=== PATIENT | female | born 1985 | race American Indian/Alaskan Native ===

== ENCOUNTER 2019-02-09 23:28 | Inpatient (IN) | payer MEDICAID, OTHER ==
--- NOTE | 2019-02-10 02:32 | Emergency Department Report ---
ED Back Pain/Injury HPI - General Chief Complaint: Back Pain/Injury Stated Complaint: BACK PAIN Time Seen by Provider: 02/10/19 02:20 Source: patient, family Limitations: No Limitations - History of Present Illness Initial Comments: This is a 33-year-old female here complaining of lower back pain that started in the morning. She reports nausea with some vomiting. Reports that she has chills and sweating. Pain is located to lower back and 10/10. She states she to Tylenoll.denies urinary burning frequency or urgency. Reports that her urine is a little darker than usual but denies any blood in the urine. Denies any abdominal pain. Last measured. Is 01/31/2019. She reports that she has a history of kidney infection in the past. Denies any history of kidney stones. Patient is a history of diabetes. Blood sugar stable in triage area. Does any shortness of breath or chest pain. Denies any injury to back. Denies any numbness or tingling to extremities or any loss of bowel or bladder function. MD Complaint: back pain, other (chills) -: This morning Similar Symptoms Previously: No Place: home Radiation: other (bilateral) Severity: severe Severity scale (0 -10): 10 Quality: aching, other (throbbing) Consistency: constant Improves With: immobilization Worsens With: movement, walking Context: unknown Associated Symptoms: fever/chills, loss of appetite, malaise, nausea/vomiting. denies: confusion, weakness, chest pain, numbness, difficulty walking, cough, difficulty urinating, diaphoresis, incontinence, constipation, headaches, abdominal pain, rash, seizure, shortness of breath, syncope Treatments Prior to Arrival: acetaminophen - Related Data Home Medications Medication Instructions Recorded Confirmed Last Taken metFORMIN [Glucophage] 500 mg PO QDAY 02/10/19 02/10/19 Unknown Allergies Allergy/AdvReac Type Severity Reaction Status Date / Time No Known Allergies Allergy Unverified 02/10/19 02:30 ED Review of Systems ROS: Stated complaint: BACK PAIN Other details as noted in HPI Constitutional: chills, malaise ENT: denies: throat pain, congestion Respiratory: denies: cough, shortness of breath, wheezing Cardiovascular: denies: chest pain, palpitations, edema, syncope Genitourinary: other (dark-colored urine). denies: urgency, dysuria, frequency, hematuria, discharge, abnormal menses Musculoskeletal: back pain Neurological: denies: headache, numbness, paresthesias, confusion, abnormal gait, vertigo ED Past Medical Hx - Past Medical History Medical history: diabetes Surgical history: no surgical history Psychiatric history: no pertinent history PARTS CLERK history: no PARTS CLERK history LMP comments: week(s) (9 days) Family history: diabetes, hypertension - Social History Smoking Status: Never Smoker Alcohol use: none Drug use: none ED Back Pain Physical Exam - Exam General: Vital signs noted. No distress. Alert and acting appropriately. This is 33-year-old female that looks sick. Back/Abdomen: Yes Perilumbar Tenderness, Yes Flank Tenderness (bilateral CVA tenderness), No Abdominal Tenderness, No Perithoracic Tenderness, No Sacroiliac Tenderness, No Straight Leg Raise Pain Neuro: Yes Normal Sensation, Yes Motor Weakness, Yes Normal DTR's, Yes Normal Gait ED Course Vital Signs 02/09/19 23:39 Temperature 99.4 F Pulse Rate 130 H Respiratory 20 Rate Blood Pressure 121/88 O2 Sat by Pulse 99 Oximetry Vital Signs 02/09/19 02/10/19 02/10/19 23:39 03:22 04:14 Temperature 99.4 F 99.4 F Pulse Rate 130 H 120 H Respiratory 20 16 16 Rate Blood Pressure 121/88 Blood Pressure 121/58 [Right] O2 Sat by Pulse 99 98 Oximetry 02/10/19 04:22 Temperature Pulse Rate Respiratory 16 Rate Blood Pressure Blood Pressure [Right] O2 Sat by Pulse Oximetry - Reevaluation(s) Reevaluation #1: 02/10/19 03:30 Patient started on IV fluid 1 L, cultures ordered, labs disorder. She was given Motrin 800 mg by mouth and Zofran 8 mg IV. She is able to tolerate by mouth fluid. Reevaluation #2: 02/10/19 03:48 CBC with elevated white count, patient is tachycardic at 1:30. Urinalysis sent and pending. Cultures and urine culture pending. Patient case discussed with Dr. Simeon Lau due to elevated heart rate and elevated white count along with low- grade fever and chills and it was decided the patient will be placed on sepsis protocol which was initiated. Patient to receive 2 g of Rocephin IV. Old substance called overhead. Patient for repeat vital signs. She stable and in no acute distress. Awaiting other lab results to include lactic acid. I discussed the patient lab results, and that she will be admitted and reason for admission and she is in agreement. Patient is stable with family member at bedside Reevaluation #3: 02/10/19 05:30 Patient stable, still tachycardic. Pain is controlled. No acute distress at present. Lactic acid at 1.8. CT scan of the abdomen and pelvis with no contrast shows no acute findings. Reevaluation #4: 02/10/19 05:[address] HARRISON regarding admission of patient's and he agrees to accept patient to be admitted to hospitalist service. - Consultations Consultation #1: 02/10/19 05:34 CHRISTY Ed Back Pain Tests - Tests Tests: Normal X Rays (CT scan of the abdomen and pelvis negative findings), Abnormal UA (positive for infection.) ED Medical Decision Making - Lab Data Result diagrams: 02/10/19 02:40 02/10/19 02:40 Lab Results 02/09/19 02/10/19 02/10/19 Range/Units 23:55 02:40 02:40 WBC 26.8 H (4.5-11.0) K/mm3 RBC 5.16 H (3.65-5.03) M/mm3 Hgb 13.7 (10.1-14.3) gm/dl Hct 42.2 (30.3-42.9) % MCV 82 (79-97) fl MCH 27 L (28-32) pg MCHC 32 (30-34) % RDW 13.7 (13.2-15.2) % Plt Count 269 (140-440) K/mm3 Add Manual Diff Complete Total Counted 100 Seg Neuts % (Manual) 88.0 H (40.0-70.0) % Band Neutrophils % 0 % Lymphocytes % (Manual) 8.0 L (13.4-35.0) % Reactive Lymphs % (Man) 0 % Monocytes % (Manual) 4.0 (0.0-7.3) % Eosinophils % (Manual) 0 (0.0-4.3) % Basophils % (Manual) 0 (0.0-1.8) % Metamyelocytes % 0 % Myelocytes % 0 % Promyelocytes % 0 % Blast Cells % 0 % Nucleated RBC % Not Reportable Seg Neutrophils # Man 23.6 H (1.8-7.7) K/mm3 Band Neutrophils # 0.0 K/mm3 Lymphocytes # (Manual) 2.1 (1.2-5.4) K/mm3 Abs React Lymphs (Man) 0.0 K/mm3 Monocytes # (Manual) 1.1 H (0.0-0.8) K/mm3 Eosinophils # (Manual) 0.0 (0.0-0.4) K/mm3 Basophils # (Manual) 0.0 (0.0-0.1) K/mm3 Metamyelocytes # 0.0 K/mm3 Myelocytes # 0.0 K/mm3 Promyelocytes # 0.0 K/mm3 Blast Cells # 0.0 K/mm3 WBC Morphology Not Reportable Hypersegmented Neuts Not Reportable Hyposegmented Neuts Not Reportable Hypogranular Neuts Not Reportable Smudge Cells Not Reportable Toxic Granulation Not Reportable Toxic Vacuolation Not Reportable Dohle Bodies Not Reportable Pelger-Huet Anomaly Not Reportable Karan Rods Not Reportable Platelet Estimate Not Reportable Clumped Platelets Not Reportable Plt Clumps, EDTA Not Reportable Large Platelets Not Reportable Giant Platelets Not Reportable Platelet Satelliting Not Reportable Plt Morphology Comment Not Reportable RBC Morphology Normal Dimorphic RBCs Not Reportable Polychromasia Not Reportable Hypochromasia Not Reportable Poikilocytosis Not Reportable Anisocytosis Not Reportable Microcytosis Not Reportable Macrocytosis Not Reportable Spherocytes Not Reportable Pappenheimer Bodies Not Reportable Sickle Cells Not Reportable Target Cells Not Reportable Tear Drop Cells Not Reportable Ovalocytes Not Reportable Helmet Cells Not Reportable [place] Bodies Not Reportable [place] Rings Not Reportable [place] Cells Not Reportable Bite Cells Not Reportable Crenated Cell Not Reportable Elliptocytes Not Reportable Acanthocytes (Spur) Not Reportable Rouleaux Not Reportable Hemoglobin C Crystals Not Reportable Schistocytes Not Reportable Malaria parasites Not Reportable Robb Bodies Not Reportable Hem Pathologist Commnt No Sodium (137-145) mmol/L Potassium (3.6-5.0) mmol/L Chloride (98-107) mmol/L Carbon Dioxide (22-30) mmol/L Anion Gap mmol/L BUN (7-17) mg/dL Creatinine (0.7-1.2) mg/dL Estimated GFR ml/min BUN/Creatinine Ratio % Glucose (65-100) mg/dL POC Glucose 84 (70-105) Lactic Acid (0.7-2.0) mmol/L Calcium (8.4-10.2) mg/dL Total Bilirubin (0.1-1.2) mg/dL Direct Bilirubin (0-0.2) mg/dL Indirect Bilirubin mg/dL AST (5-40) units/L ALT (7-56) units/L Alkaline Phosphatase (35-129) units/L Total Protein (6.3-8.2) g/dL Albumin (3.9-5) g/dL Albumin/Globulin Ratio % HCG, Qual Negative (Negative) 02/10/19 02/10/19 02/10/19 Range/Units 02:40 02:40 06:08 WBC (4.5-11.0) K/mm3 RBC (3.65-5.03) M/mm3 Hgb (10.1-14.3) gm/dl Hct (30.3-42.9) % MCV (79-97) fl MCH (28-32) pg MCHC (30-34) % RDW (13.2-15.2) % Plt Count (140-440) K/mm3 Add Manual Diff Total Counted Seg Neuts % (Manual) (40.0-70.0) % Band Neutrophils % % Lymphocytes % (Manual) (13.4-35.0) % Reactive Lymphs % (Man) % Monocytes % (Manual) (0.0-7.3) % Eosinophils % (Manual) (0.0-4.3) % Basophils % (Manual) (0.0-1.8) % Metamyelocytes % % Myelocytes % % Promyelocytes % % Blast Cells % % Nucleated RBC % Seg Neutrophils # Man (1.8-7.7) K/mm3 Band Neutrophils # K/mm3 Lymphocytes # (Manual) (1.2-5.4) K/mm3 Abs React Lymphs (Man) K/mm3 Monocytes # (Manual) (0.0-0.8) K/mm3 Eosinophils # (Manual) (0.0-0.4) K/mm3 Basophils # (Manual) (0.0-0.1) K/mm3 Metamyelocytes # K/mm3 Myelocytes # K/mm3 Promyelocytes # K/mm3 Blast Cells # K/mm3 WBC Morphology Hypersegmented Neuts Hyposegmented Neuts Hypogranular Neuts Smudge Cells Toxic Granulation Toxic Vacuolation Dohle Bodies Pelger-Huet Anomaly Karan Rods Platelet Estimate Clumped Platelets Plt Clumps, EDTA Large Platelets Giant Platelets Platelet Satelliting Plt Morphology Comment RBC Morphology Dimorphic RBCs Polychromasia Hypochromasia Poikilocytosis Anisocytosis Microcytosis Macrocytosis Spherocytes Pappenheimer Bodies Sickle Cells Target Cells Tear Drop Cells Ovalocytes Helmet Cells [place] Bodies [place] Rings Domenico Cells Bite Cells Crenated Cell Elliptocytes Acanthocytes (Spur) Rouleaux Hemoglobin C Crystals Schistocytes Malaria parasites Robb Bodies Hem Pathologist Commnt Sodium 136 L (137-145) mmol/L Potassium 3.6 (3.6-5.0) mmol/L Chloride 99.8 (98-107) mmol/L Carbon Dioxide 23 (22-30) mmol/L Anion Gap 17 mmol/L BUN 8 (7-17) mg/dL Creatinine 1.4 H (0.7-1.2) mg/dL Estimated GFR 52 ml/min BUN/Creatinine Ratio 6 % Glucose 122 H (65-100) mg/dL POC Glucose (70-105) Lactic Acid 0.90 (0.7-2.0) mmol/L Calcium 9.4 (8.4-10.2) mg/dL Total Bilirubin 0.80 (0.1-1.2) mg/dL Direct Bilirubin 0.3 H (0-0.2) mg/dL Indirect Bilirubin 0.5 mg/dL AST 20 (5-40) units/L ALT 19 (7-56) units/L Alkaline Phosphatase 84 (35-129) units/L Total Protein 8.4 H (6.3-8.2) g/dL Albumin 4.4 (3.9-5) g/dL Albumin/Globulin Ratio 1.1 % HCG, Qual (Negative) Urine culture and blood culture pending - Radiology Data Radiology results: report reviewed CT scan of the abdomen and pelvis without contrast dictated by radiologist and report reviewed by myself. Please see details below Findings [facility] [address] [place] [address] Cat Scan Report Signed Patient: LEONARDA GARCIA MR# : [id number] : 1985 Acct:[id number] Age/Sex: 33 / F ADM Date: 02/09/19 Loc: ED Attending Dr: Ordering Physician: GEOVANNY BULLARD Date of Service: 02/10/19 Procedure(s): CT abdomen pelvis wo con Accession Number(s): [id number] cc: GEOVANNY BULLARD CT ABDOMEN AND PELVIS WITHOUT CONTRAST INDICATION / CLINICAL INFORMATION: low back pain, UTI, hematuria. TECHNIQUE: Axial CT images were obtained through the abdomen and pelvis without IV contrast. All CT scans at this location are performed using CT dose reduction for ALARA by means of automated exposure control. COMPARISON: None available. FINDINGS: LOWER CHEST: No significant abnormality. LIVER: No significant abnormality. GALLBLADDER: No significant abnormality. BILE DUCTS: No significant abnormality. PANCREAS: No significant abnormality. SPLEEN: No significant abnormality. ADRENALS: No significant abnormality. RIGHT KIDNEY and URETER: No significant abnormality. LEFT KIDNEY and URETER: No significant abnormality. STOMACH and SMALL BOWEL: No significant abnormality. COLON: No significant abnormality. APPENDIX: No significant abnormality. PERITONEUM: No free fluid. No free air. No fluid collection. LYMPH NODES: No significant adenopathy. AORTA and ARTERIES: No significant abnormality. IVC and VEINS: No significant abnormality. URINARY BLADDER: No significant abnormality. REPRODUCTIVE ORGANS: No significant abnormality. ADDITIONAL FINDINGS: None. SKELETAL SYSTEM: No significant abnormality. IMPRESSION: 1. No significant abnormality. Signer Name: Valerio Lopez MD Signed: 02/10/2019 5:09 AM Workstation Name: [id number] Transcribed By: BC Dictated By: Valerio Lopez MD Electronically Authenticated By: Valerio Lopez MD Signed Date/Time: 02/10/19 0509 DD/ 050 TD/TT: . - Medical Decision Making This is a [age] female presents emergency room with nausea vomiting, fever and complain of lower back pain. Patient had low-grade fever and complained of chills. She also had tachycardia 130 in triage which got better throughout her ED stay. Her other vital signs were stable. The glucose was 84. Patient lab work revealed with CBC of greater than 26 with bacterial shift to the left, she had creatinine of 1.4 her CMP, urinalysis is negative for infection. Physical findings for bilateral CVA tenderness with normal exam abdominal exam. Patient placed on sepsis protocol and cold sepsis call. She was placed on IV fluid based on 30 mg/kg, she is given Rocephin 2 g IV, this was done after blood cultures and urine cultures were sent. Pain and nausea controlled with antinausea and pain medication. I spoke with Dr. Simeon Lau regarding patient presentation and lab reports and it was decided the patient will be admitted for pyelonephritis causing sepsis. Lactic acid showed 1.8. She had large amount of blood in her urine and denies being on her period so CT scan of the abdomen and pelvis done without contrast and normal findings. All results and CT scan discussed the patient along with diagnosis and medication. I discussed need for inpatient admission and she agrees. I spoke with Dr. Harrison who agreed to accept patient and he saw patient in emergency room and patient to be admitted to MedSurg floor. Patient vital signs stable she is still tachycardic at 120, Pt awaiting MedSurg placement and nephrologists consulted regarding creatinine of 1.4. Admitted with pyelonephritis, leukocytosis, back pain, fever, acute renal failure. ED Bridge at her place - Differential Diagnosis Pyelonephritis, UTI, , Critical care attestation.: If time is entered above; I have spent that time in minutes in the direct care of this critically ill patient, excluding procedure time. ED Disposition Clinical Impression: Acute pyelonephritis, Fever in adult, Tachycardia Acute renal failure Qualifiers: Acute renal failure type: unspecified Qualified Code(s): N17.9 - Acute kidney failure, unspecified Leukocytosis, unspecified Qualifiers: Leukocytosis type: other Qualified Code(s): D72.828 - Other elevated white blood cell count Lower back pain Qualifiers: Chronicity: acute Back pain laterality: bilateral Sciatica presence: without sciatica Qualified Code(s): M54.5 - Low back pain Disposition: OP ADMIT IP TO THIS HOSP Is pt being admited?: Yes Does the pt Need Aspirin: No Condition: Stable
[2019-02-10] MEDS ORDERED: IBUPROFEN 800 MG TAB PO ONE (02:33)
[2019-02-10] MEDS ORDERED: SODIUM CHLORIDE 0.9% 1000 ML 1,000 ML IV ONE (02:33)
[2019-02-10] MEDS ORDERED: ONDANSETRON 4 MG/2 ML INJ IV ONE (02:33)
[2019-02-10 03:04] LABS: Hematocrit 42.2 % (30.3-42.9); Hemoglobin 13.7 gm/dl (10.1-14.3); Mean Corpuscular HGB Conc 32 % (30-34); Mean Corpuscular Volume 82 fl (79-97); Platelet Count 269 K/mm3 (140-440); Red Blood Count 5.16 M/mm3 (3.65-5.03); Red Cell Distribution Width 13.7 % (13.2-15.2)
[2019-02-10] MEDS ORDERED: SODIUM CHLORIDE 0.9% 1000 ML IV SOLN IV ONE ×2 (03:13)
[2019-02-10 03:24] LABS: Calcium 9.4 mg/dL (8.4-10.2)
[2019-02-10] MEDS ORDERED: cefTRIAXone/NS 2 GM/100 ML 2 GM/100 ML BAG IV ONE (03:28)
[2019-02-10 03:33] LABS: Bacteria,Urine 1+ /HPF (Negative); Bilirubin,Urine NEG (Negative); Blood,Urine LG (Negative); Color,Urine Yellow (Yellow); Mucus,Urine FEW /HPF; Urobilinogen,Urine < 2.0 mg/dL (<2.0)
[2019-02-10 03:36] LABS: Basophils % (Manual) 0 % (0.0-1.8); Eosinophils % (Manual) 0 % (0.0-4.3); RBC Morphology Normal; Total Cells Counted 100
[2019-02-10 03:37] LABS: WBC,Urine > 182.0 /HPF (0.0-6.0)
[2019-02-10 04:08] LABS: Albumin 4.4 g/dL (3.9-5); Bilirubin,Direct 0.3 mg/dL (0-0.2)
--- NOTE | 2019-02-10 05:14 | Cat Scan Report ---
CT ABDOMEN AND PELVIS WITHOUT CONTRAST INDICATION / CLINICAL INFORMATION: low back pain, UTI, hematuria. TECHNIQUE: Axial CT images were obtained through the abdomen and pelvis without IV contrast. All CT scans at [facility] location are performed using CT dose reduction for ALARA by means of automated exposure control. COMPARISON: None available. FINDINGS: LOWER CHEST: No significant abnormality. LIVER: No significant abnormality. GALLBLADDER: No significant abnormality. BILE DUCTS: No significant abnormality. PANCREAS: No significant abnormality. SPLEEN: No significant abnormality. ADRENALS: No significant abnormality. RIGHT KIDNEY and URETER: No significant abnormality. LEFT KIDNEY and URETER: No significant abnormality. STOMACH and SMALL BOWEL: No significant abnormality. COLON: No significant abnormality. APPENDIX: No significant abnormality. PERITONEUM: No free fluid. No free air. No fluid collection. LYMPH NODES: No significant adenopathy. AORTA and ARTERIES: No significant abnormality. IVC and VEINS: No significant abnormality. URINARY BLADDER: No significant abnormality. REPRODUCTIVE ORGANS: No significant abnormality. ADDITIONAL FINDINGS: None. SKELETAL SYSTEM: No significant abnormality. IMPRESSION: 1. No significant abnormality. Signer Name: Valerio Lopez MD Signed: 02/10/2019 5:09 AM Workstation Name: [id number]
[2019-02-10] MEDS ORDERED: ONDANSETRON 4 MG/2 ML INJ IV PRN (07:39)
[2019-02-10] MEDS ORDERED: oxyCODONE /ACETAMINOPHEN 5-325MG TAB PO PRN (07:39)
[2019-02-10] MEDS ORDERED: METOCLOPRAMIDE 10 MG/2 ML INJ IV PRN (07:39)
--- NOTE | 2019-02-10 07:45 | History and Physical Report ---
History of Present Illness Date of examination: 02/10/19 Date of admission: 02/10/19 06:47 Chief complaint: Bilateral flank pain for 1 day Low-grade fever for 1 day History of present illness: 33-year-old -[place] female with no significant past medical history comes in for bilateral flank pain and dysuria. Pain is about 6 on a scale of 1- 10. Patient also has low-grade fever and nausea. No vomiting. Patient also has low back pain which is about 4 on scale of 1-10 no exacerbating or precipitating factors. No chills. Has dysuria. Past History Past Medical History: No medical history, diabetes Past Surgical History: Other (laparoscopy but patient does not know what it was done for.) Social history: no significant social history, lives with family, full code Family history: hypertension Medications and Allergies Allergies Allergy/AdvReac Type Severity Reaction Status Date / Time No Known Allergies Allergy Unverified 02/10/19 02:30 Home Medications Medication Instructions Recorded Confirmed Last Taken Type metFORMIN [Glucophage] 500 mg PO QDAY 02/10/19 02/10/19 Unknown History Active Meds: Active Medications Acetaminophen (Tylenol) 650 mg PO Q4H PRN PRN Reason: Pain MILD(1-3)/Fever >100.5/RIOS Famotidine (Pepcid) 20 mg IV BID LETICIA Hydromorphone HCl (Dilaudid) 1 mg IV Q3H PRN PRN Reason: Pain , Severe (7-10) Dextrose/Sodium Chloride (D5ns) 1,000 mls @ 75 mls/hr IV DIRECT LETICIA Ceftriaxone Sodium (Rocephin/Ns 2 Gm/100 Ml) 2 gm in 100 mls @ 200 mls/hr IV Q24HR LETICIA; Protocol Metoclopramide HCl (Reglan) 10 mg IV Q6H PRN PRN Reason: Nausea And Vomiting Ondansetron HCl (Zofran) 4 mg IV Q3H PRN PRN Reason: Nausea And Vomiting Oxycodone/Acetaminophen (Percocet 5/325) 1 tab PO Q6H PRN PRN Reason: Pain, Moderate (4-6) Sodium Chloride (Sodium Chloride Flush Syringe 10 Ml) 10 ml IV BID LETICIA Sodium Chloride (Sodium Chloride Flush Syringe 10 Ml) 10 ml IV PRN PRN PRN Reason: LINE FLUSH Review of Systems All systems: negative Constitutional: fever, no weight loss, no weight gain Ears, nose, mouth and throat: no ear pain, no ear discharge, no tinnitis, no decreased hearing Breasts: deferred Cardiovascular: no chest pain, no orthopnea, no palpitations, no rapid/irregular heart beat, no edema, no syncope Respiratory: no cough, no cough with sputum, no excessive sputum, no hemoptysis, no shortness of breath Gastrointestinal: nausea Genitourinary Female: dysuria, urgency Musculoskeletal: myalgias, no neck stiffness, no neck pain Neurological: no seizures, no syncope Psychiatric: no anxiety, no memory loss Endocrine: no polydipsia, no polyuria Hematologic/Lymphatic: no easy bruising, no easy bleeding Allergic/Immunologic: no urticaria, no allergic rhinitis, no wheezing Exam - Constitutional Vitals: Temp Pulse Resp BP Pulse Ox 99.4 F 120 H 20 121/58 98 02/10/19 04:14 02/10/19 04:14 02/10/19 06:38 02/10/19 04:14 02/10/19 06:38 General appearance: Present: no acute distress, well-nourished - EENT Eyes: Present: PERRL ENT: hearing intact, clear oral mucosa - Neck Neck: Present: supple, normal ROM - Respiratory Respiratory effort: normal Respiratory: bilateral: CTA - Cardiovascular Heart rate: 110 Rhythm: regular Heart Sounds: Present: S1 & S2. Absent: rub, click - Extremities Extremities: pulses symmetrical, No edema Peripheral Pulses: within normal limits - Abdominal General gastrointestinal: Present: soft, tender (suprapubic tenderness), non- distended, normal bowel sounds Localized gastrointestinal: tender: suprapubic Female genitourinary: Present: normal - Rectal Rectal Exam: deferred - Integumentary Integumentary: Present: clear, warm, dry - Musculoskeletal Musculoskeletal: gait normal, strength equal bilaterally - Psychiatric Psychiatric: appropriate mood/affect, intact judgment & insight - Neurologic Neurologic: CNII-XII intact, moves all extremities - Allied Health Allied health notes reviewed: nursing, case management Results - Labs CBC & Chem 7: 02/10/19 02:40 02/10/19 02:40 Labs: Laboratory Last Values WBC 26.8 K/mm3 (4.5-11.0) H 02/10/19 02:40 RBC 5.16 M/mm3 (3.65-5.03) H 02/10/19 02:40 Hgb 13.7 gm/dl (10.1-14.3) 02/10/19 02:40 Hct 42.2 % (30.3-42.9) 02/10/19 02:40 MCV 82 fl (79-97) 02/10/19 02:40 MCH 27 pg (28-32) L 02/10/19 02:40 MCHC 32 % (30-34) 02/10/19 02:40 RDW 13.7 % (13.2-15.2) 02/10/19 02:40 Plt Count 269 K/mm3 (140-440) 02/10/19 02:40 Add Manual Diff Complete 02/10/19 02:40 Total Counted 100 02/10/19 02:40 Seg Neuts % (Manual) 88.0 % (40.0-70.0) H 02/10/19 02:40 Band Neutrophils % 0 % 02/10/19 02:40 Lymphocytes % (Manual) 8.0 % (13.4-35.0) L 02/10/19 02:40 Reactive Lymphs % (Man) 0 % 02/10/19 02:40 Monocytes % (Manual) 4.0 % (0.0-7.3) 02/10/19 02:40 Eosinophils % (Manual) 0 % (0.0-4.3) 02/10/19 02:40 Basophils % (Manual) 0 % (0.0-1.8) 02/10/19 02:40 Metamyelocytes % 0 % 02/10/19 02:40 Myelocytes % 0 % 02/10/19 02:40 Promyelocytes % 0 % 02/10/19 02:40 Blast Cells % 0 % 02/10/19 02:40 Nucleated RBC % Not Reportable 02/10/19 02:40 Seg Neutrophils # Man 23.6 K/mm3 (1.8-7.7) H 02/10/19 02:40 Band Neutrophils # 0.0 K/mm3 02/10/19 02:40 Lymphocytes # (Manual) 2.1 K/mm3 (1.2-5.4) 02/10/19 02:40 Abs React Lymphs (Man) 0.0 K/mm3 02/10/19 02:40 Monocytes # (Manual) 1.1 K/mm3 (0.0-0.8) H 02/10/19 02:40 Eosinophils # (Manual) 0.0 K/mm3 (0.0-0.4) 02/10/19 02:40 Basophils # (Manual) 0.0 K/mm3 (0.0-0.1) 02/10/19 02:40 Metamyelocytes # 0.0 K/mm3 02/10/19 02:40 Myelocytes # 0.0 K/mm3 02/10/19 02:40 Promyelocytes # 0.0 K/mm3 02/10/19 02:40 Blast Cells # 0.0 K/mm3 02/10/19 02:40 WBC Morphology Not Reportable 02/10/19 02:40 Hypersegmented Neuts Not Reportable 02/10/19 02:40 Hyposegmented Neuts Not Reportable 02/10/19 02:40 Hypogranular Neuts Not Reportable 02/10/19 02:40 Smudge Cells Not Reportable 02/10/19 02:40 Toxic Granulation Not Reportable 02/10/19 02:40 Toxic Vacuolation Not Reportable 02/10/19 02:40 Dohle Bodies Not Reportable 02/10/19 02:40 Pelger-Huet Anomaly Not Reportable 02/10/19 02:40 Karan Rods Not Reportable 02/10/19 02:40 Platelet Estimate Not Reportable 02/10/19 02:40 Clumped Platelets Not Reportable 02/10/19 02:40 Plt Clumps, EDTA Not Reportable 02/10/19 02:40 Large Platelets Not Reportable 02/10/19 02:40 Giant Platelets Not Reportable 02/10/19 02:40 Platelet Satelliting Not Reportable 02/10/19 02:40 Plt Morphology Comment Not Reportable 02/10/19 02:40 RBC Morphology Normal 02/10/19 02:40 Dimorphic RBCs Not Reportable 02/10/19 02:40 Polychromasia Not Reportable 02/10/19 02:40 Hypochromasia Not Reportable 02/10/19 02:40 Poikilocytosis Not Reportable 02/10/19 02:40 Anisocytosis Not Reportable 02/10/19 02:40 Microcytosis Not Reportable 02/10/19 02:40 Macrocytosis Not Reportable 02/10/19 02:40 Spherocytes Not Reportable 02/10/19 02:40 Pappenheimer Bodies Not Reportable 02/10/19 02:40 Sickle Cells Not Reportable 02/10/19 02:40 Target Cells Not Reportable 02/10/19 02:40 Tear Drop Cells Not Reportable 02/10/19 02:40 Ovalocytes Not Reportable 02/10/19 02:40 Helmet Cells Not Reportable 02/10/19 02:40 Zamarripa-Zemple Bodies Not Reportable 02/10/19 02:40 [place] Rings Not Reportable 02/10/19 02:40 [place] Cells Not Reportable 02/10/19 02:40 Bite Cells Not Reportable 02/10/19 02:40 Crenated Cell Not Reportable 02/10/19 02:40 Elliptocytes Not Reportable 02/10/19 02:40 Acanthocytes (Spur) Not Reportable 02/10/19 02:40 Rouleaux Not Reportable 02/10/19 02:40 Hemoglobin C Crystals Not Reportable 02/10/19 02:40 Schistocytes Not Reportable 02/10/19 02:40 Malaria parasites Not Reportable 02/10/19 02:40 Robb Bodies Not Reportable 02/10/19 02:40 Hem Pathologist Commnt No 02/10/19 02:40 Sodium 136 mmol/L (137-145) L 02/10/19 02:40 Potassium 3.6 mmol/L (3.6-5.0) 02/10/19 02:40 Chloride 99.8 mmol/L (98-107) 02/10/19 02:40 Carbon Dioxide 23 mmol/L (22-30) 02/10/19 02:40 Anion Gap 17 mmol/L 02/10/19 02:40 BUN 8 mg/dL (7-17) 02/10/19 02:40 Creatinine 1.4 mg/dL (0.7-1.2) H 02/10/19 02:40 Estimated GFR 52 ml/min 02/10/19 02:40 BUN/Creatinine Ratio 6 % 02/10/19 02:40 Glucose 122 mg/dL (65-100) H 02/10/19 02:40 POC Glucose 84 (70-105) 02/09/19 23:55 Lactic Acid 1.80 mmol/L (0.7-2.0) 02/10/19 Unknown Calcium 9.4 mg/dL (8.4-10.2) 02/10/19 02:40 Total Bilirubin 0.80 mg/dL (0.1-1.2) 02/10/19 02:40 Direct Bilirubin 0.3 mg/dL (0-0.2) H 02/10/19 02:40 Indirect Bilirubin 0.5 mg/dL 02/10/19 02:40 AST 20 units/L (5-40) 02/10/19 02:40 ALT 19 units/L (7-56) 02/10/19 02:40 Alkaline Phosphatase 84 units/L (35-129) 02/10/19 02:40 Total Protein 8.4 g/dL (6.3-8.2) H 02/10/19 02:40 Albumin 4.4 g/dL (3.9-5) 02/10/19 02:40 Albumin/Globulin Ratio 1.1 % 02/10/19 02:40 HCG, Qual Negative (Negative) 02/10/19 02:40 Urine Color Yellow (Yellow) 02/10/19 Unknown Urine Turbidity Cloudy (Clear) 02/10/19 Unknown Urine pH 6.0 (5.0-7.0) 02/10/19 Unknown Ur Specific [place] 1.011 (1.003-1.030) 02/10/19 Unknown Urine Protein 100 mg/dl mg/dL (Negative) 02/10/19 Unknown Urine Glucose (UA) Neg mg/dL (Negative) 02/10/19 Unknown Urine Ketones 20 mg/dL (Negative) 02/10/19 Unknown Urine Blood Lg (Negative) 02/10/19 Unknown Urine Nitrite Neg (Negative) 02/10/19 Unknown Urine Bilirubin Neg (Negative) 02/10/19 Unknown Urine Urobilinogen < 2.0 mg/dL (<2.0) 02/10/19 Unknown Ur Leukocyte Esterase Lg (Negative) 02/10/19 Unknown Urine WBC (Auto) > 182.0 /HPF (0.0-6.0) H 02/10/19 Unknown Urine RBC (Auto) 70.0 /HPF (0.0-6.0) 02/10/19 Unknown U Epithel Cells (Auto) 6.0 /HPF (0-13.0) 02/10/19 Unknown Urine Bacteria (Auto) 1+ /HPF (Negative) 02/10/19 Unknown Urine Mucus Few /HPF 02/10/19 Unknown Urine Yeast (Budding) 1+ /HPF 02/10/19 Unknown Short CBC 02/10/19 Range/Units 02:40 WBC 26.8 H (4.5-11.0) K/mm3 Hgb 13.7 (10.1-14.3) gm/dl Hct 42.2 (30.3-42.9) % Plt Count 269 (140-440) K/mm3 BMP 02/10/19 02:40 Sodium 136 L Potassium 3.6 Chloride 99.8 Carbon Dioxide 23 BUN 8 Creatinine 1.4 H Glucose 122 H Calcium 9.4 Liver Function 02/10/19 Range/Units 02:40 Total Bilirubin 0.80 (0.1-1.2) mg/dL Direct Bilirubin 0.3 H (0-0.2) mg/dL AST 20 (5-40) units/L ALT 19 (7-56) units/L Alkaline Phosphatase 84 (35-129) units/L Albumin 4.4 (3.9-5) g/dL Urine 02/10/19 Range/Units Unknown Urine Color Yellow (Yellow) Urine pH 6.0 (5.0-7.0) Ur Specific [place] 1.011 (1.003-1.030) Urine Protein 100 mg/dl (Negative) mg/dL Urine Glucose (UA) Neg (Negative) mg/dL - Imaging and Cardiology CT scan - abdomen: report reviewed (no acute findings) Assessment and Plan Advance Directives: Yes (full code) VTE prophylaxis?: Chemical Plan of care discussed with patient/family: Yes - Patient Problems (1) SIRS (systemic inflammatory response syndrome) Current Visit: Yes Status: Acute Plan to address problem: Patient is a right thyroid patient is a high white count of 26,000 and low-grade temperature Consistent with systemic inflammatory response syndrome Patient initiated on IV fluids and IV Rocephin pending urine cultures and blood cultures (2) Acute pyelonephritis Current Visit: Yes Status: Acute Plan to address problem: Patient initiated on IV Rocephin and IV fluids pending cultures (3) GREGORIO (acute kidney injury) Current Visit: Yes Status: Acute Plan to address problem: Secondary to vasomotor nephropathy IV fluids for now (4) T2DM (type 2 diabetes mellitus) Current Visit: Yes Status: Chronic 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
[2019-02-10] MEDS ORDERED: D5W/0.9% NACL 1,000 ML IV SCH (08:00)
[2019-02-10] MEDS ORDERED: cefTRIAXone/NS 2 GM/100 ML 2 GM/100 ML BAG IV SCH (10:00)
[2019-02-10] MEDS: HYDROmorphone 1 MG/1 ML INJ IV PRN ×3 (10:20→23:39)
[2019-02-10] MEDS: metFORMIN 500 MG TAB PO SCH (10:21)
[2019-02-10] MEDS: HEPARIN 5,000 UNIT/1 ML VIAL SUB-Q SCH ×2 (10:21→22:03)
[2019-02-10] MEDS: FAMOTIDINE 20 MG/2 ML INJ IV SCH ×2 (10:21→22:03)
[2019-02-10] MEDS ORDERED: INSULIN LISPRO 100 UNIT/ML SUB-Q SCH (11:30)
--- NOTE | 2019-02-10 12:07 | Event Note ---
Date: 02/10/19 Patient seen and doing well. Reports tolerating diet. Prior hx of the symptoms two year ago, was treated for 2 weeks in the hospital
[2019-02-10] MEDS: SODIUM CHLORIDE 0.9% 1000 ML 1,000 ML IV SCH (16:01)
[2019-02-10] MEDS: ACETAMINOPHEN 325 MG TAB PO PRN (23:39)
[2019-02-11] MEDS: cefTRIAXone/NS 2 GM/100 ML 2 GM/100 ML BAG IV SCH ×2 (04:59→10:20)
[2019-02-11] MEDS: SODIUM CHLORIDE 0.9% 1000 ML 1,000 ML IV SCH ×3 (07:07→22:04)
[2019-02-11] MEDS: metFORMIN 500 MG TAB PO SCH (08:00)
[2019-02-11 09:38] LABS: Basophils % (Auto) 0.2 % (0.0-1.8); Eosinophils # (Auto) 0.1 K/mm3 (0.0-0.4); Eosinophils % (Auto) 0.7 % (0.0-4.3); Hematocrit 35.6 % (30.3-42.9); Hemoglobin 11.6 gm/dl (10.1-14.3); Lymphocytes # (Auto) 1.3 K/mm3 (1.2-5.4); Lymphocytes % (Auto) 6.8 % (13.4-35.0); Mean Corpuscular HGB Conc 33 % (30-34); Mean Corpuscular Volume 82 fl (79-97); Monocytes # (Auto) 1.3 K/mm3 (0.0-0.8); Monocytes % (Auto) 6.9 % (0.0-7.3); Platelet Count 207 K/mm3 (140-440); Red Blood Count 4.33 M/mm3 (3.65-5.03); Red Cell Distribution Width 13.7 % (13.2-15.2)
[2019-02-11] MEDS: FAMOTIDINE 20 MG/2 ML INJ IV SCH (10:23)
[2019-02-11] MEDS: HEPARIN 5,000 UNIT/1 ML VIAL SUB-Q SCH ×2 (10:24→21:58)
[2019-02-11] MEDS ORDERED: SENNOSIDES 8.6 MG TAB PO PRN (11:05)
[2019-02-11] MEDS: SENNOSIDES 8.6 MG TAB PO SCH (11:52)
[2019-02-11] MEDS: CEFEPIME/NS 1 GM/100 ML 1 GM/100 ML BAG IV SCH ×2 (12:04→21:58)
--- NOTE | 2019-02-11 17:56 | Progress Note ---
Assessment and Plan Assessment and plan: 33-year-old -[place] female with no significant past medical history comes in for bilateral flank pain and dysuria. Pain is about 6 on a scale of 1- 10. Patient also has low-grade fever and nausea. No vomiting. Patient also has low back pain which is about 4 on scale of 1-10 no exacerbating or precipitating factors. No chills. Has dysuria. * Per patient prior epsiode a few years ago led to 2 week hospital stay * CT A/P negative. will check Renal ultrasound in the setting of recurrent Feve r. * Wbc Improving. * Will consult ID will awaiting cultures (1) Sepsis secondary Acute Pyelonephritis Current Visit: Yes Status: Acute Plan to address problem: Patient is a right thyroid patient is a high white count of 26,000 and low-grade temperature Consistent with systemic inflammatory response syndrome Patient initiated on IV fluids and IV cefepim pending urine cultures and blood cultures (2) Acute pyelonephritis Current Visit: Yes Status: Acute Plan to address problem: Patient initiated on IV cefepime and IV fluids pending cultures (3) GREGORIO (acute kidney injury) Current Visit: Yes Status: Acute Plan to address problem: Secondary to vasomotor nephropathy IV fluids for now (4) T2DM (type 2 diabetes mellitus) Current Visit: Yes Status: Chronic Qualifiers: 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 Nursing staff reports overnight fever. Hospitalist Physical - Constitutional Vitals: Temp Pulse Resp BP Pulse Ox 101.4 F H 110 H 18 97/58 87 02/11/19 16:35 02/11/19 16:35 02/11/19 16:35 02/11/19 16:35 02/11/19 16:35 General appearance: Present: no acute distress, well-nourished - EENT Eyes: Present: PERRL, EOM intact ENT: clear oral mucosa - Neck Neck: Present: supple, normal ROM - Respiratory Respiratory effort: normal Respiratory: bilateral: CTA - Cardiovascular Rhythm: regular Heart Sounds: Present: S1 & S2. Absent: systolic murmur - Extremities Extremities: no ischemia, pulses intact, pulses symmetrical, No edema, normal t emperature, normal color, Full ROM Peripheral Pulses: within normal limits - Abdominal General gastrointestinal: soft, non-tender, non-distended, normal bowel sounds, other (bilATERAL CVA TENDERNESS) - Integumentary Integumentary: Present: clear, warm, dry - Psychiatric Psychiatric: appropriate mood/affect, intact judgment & insight, memory intact - Neurologic Neurologic: CNII-XII intact, moves all extremities Results - Labs CBC & Chem 7: 02/11/19 09:26 02/11/19 09:26 Labs: Laboratory Last Values WBC 18.3 K/mm3 (4.5-11.0) H 02/11/19 09: RBC 4.33 M/mm3 (3.65-5.03) 02/11/19 09: Hgb 11.6 gm/dl (10.1-14.3) 02/11/19 09: Hct 35.6 % (30.3-42.9) D 02/11/19: MCV 82 fl (79-97) 02/11/19 09: MCH 27 pg (28-32) L 02/11/19 09: MCHC 33 % (30-34) 02/11/19 09: RDW 13.7 % (13.2-15.2) 02/11/19 09: Plt Count 207 K/mm3 (140-440) 02/11/19 09: Lymph % (Auto) 6.8 % (13.4-35.0) L 02/11/19 09: [place] % (Auto) 6.9 % (0.0-7.3) 02/11/19 09: Eos % (Auto) 0.7 % (0.0-4.3) 02/11/19 09: Baso % (Auto) 0.2 % (0.0-1.8) 02/11/19 09: Lymph # 1.3 K/mm3 (1.2-5.4) 02/11/19 09:26 [place] # 1.3 K/mm3 (0.0-0.8) H 02/11/19 09: Eos # 0.1 K/mm3 (0.0-0.4) 02/11/19 09:26 Baso # 0.0 K/mm3 (0.0-0.1) 02/11/19 09:26 Add Manual Diff Complete 02/10/19 02:40 Total Counted 100 02/10/19 02:40 Seg Neutrophils % 85.4 % (40.0-70.0) H 02/11/19 09:26 Seg Neuts % (Manual) 88.0 % (40.0-70.0) H 02/10/19 02:40 Band Neutrophils % 0 % 02/10/19 02:40 Lymphocytes % (Manual) 8.0 % (13.4-35.0) L 02/10/19 02:40 Reactive Lymphs % (Man) 0 % 02/10/19 02:40 Monocytes % (Manual) 4.0 % (0.0-7.3) 02/10/19 02:40 Eosinophils % (Manual) 0 % (0.0-4.3) 02/10/19 02:40 Basophils % (Manual) 0 % (0.0-1.8) 02/10/19 02:40 Metamyelocytes % 0 % 02/10/19 02:40 Myelocytes % 0 % 02/10/19 02:40 Promyelocytes % 0 % 02/10/19 02:40 Blast Cells % 0 % 02/10/19 02:40 Nucleated RBC % Not Reportable 02/10/19 02:40 Seg Neutrophils # 15.6 K/mm3 (1.8-7.7) H 02/11/19 09:26 Seg Neutrophils # Man 23.6 K/mm3 (1.8-7.7) H 02/10/19 02:40 Band Neutrophils # 0.0 K/mm3 02/10/19 02:40 Lymphocytes # (Manual) 2.1 K/mm3 (1.2-5.4) 02/10/19 02:40 Abs React Lymphs (Man) 0.0 K/mm3 02/10/19 02:40 Monocytes # (Manual) 1.1 K/mm3 (0.0-0.8) H 02/10/19 02:40 Eosinophils # (Manual) 0.0 K/mm3 (0.0-0.4) 02/10/19 02:40 Basophils # (Manual) 0.0 K/mm3 (0.0-0.1) 02/10/19 02:40 Metamyelocytes # 0.0 K/mm3 02/10/19 02:40 Myelocytes # 0.0 K/mm3 02/10/19 02:40 Promyelocytes # 0.0 K/mm3 02/10/19 02:40 Blast Cells # 0.0 K/mm3 02/10/19 02:40 WBC Morphology Not Reportable 02/10/19 02:40 Hypersegmented Neuts Not Reportable 02/10/19 02:40 Hyposegmented Neuts Not Reportable 02/10/19 02:40 Hypogranular Neuts Not Reportable 02/10/19 02:40 Smudge Cells Not Reportable 02/10/19 02:40 Toxic Granulation Not Reportable 02/10/19 02:40 Toxic Vacuolation Not Reportable 02/10/19 02:40 Dohle Bodies Not Reportable 02/10/19 02:40 Pelger-Huet Anomaly Not Reportable 02/10/19 02:40 Karan Rods Not Reportable 02/10/19 02:40 Platelet Estimate Not Reportable 02/10/19 02:40 Clumped Platelets Not Reportable 02/10/19 02:40 Plt Clumps, EDTA Not Reportable 02/10/19 02:40 Large Platelets Not Reportable 02/10/19 02:40 Giant Platelets Not Reportable 02/10/19 02:40 Platelet Satelliting Not Reportable 02/10/19 02:40 Plt Morphology Comment Not Reportable 02/10/19 02:40 RBC Morphology Normal 02/10/19 02:40 Dimorphic RBCs Not Reportable 02/10/19 02:40 Polychromasia Not Reportable 02/10/19 02:40 Hypochromasia Not Reportable 02/10/19 02:40 Poikilocytosis Not Reportable 02/10/19 02:40 Anisocytosis Not Reportable 02/10/19 02:40 Microcytosis Not Reportable 02/10/19 02:40 Macrocytosis Not Reportable 02/10/19 02:40 Spherocytes Not Reportable 02/10/19 02:40 Pappenheimer Bodies Not Reportable 02/10/19 02:40 Sickle Cells Not Reportable 02/10/19 02:40 Target Cells Not Reportable 02/10/19 02:40 Tear Drop Cells Not Reportable 02/10/19 02:40 Ovalocytes Not Reportable 02/10/19 02:40 Helmet Cells Not Reportable 02/10/19 02:40 Zamarripa-[place] Bodies Not Reportable 02/10/19 02:40 [place] Rings Not Reportable 02/10/19 02:40 [place] Cells Not Reportable 02/10/19 02:40 Bite Cells Not Reportable 02/10/19 02:40 Crenated Cell Not Reportable 02/10/19 02:40 Elliptocytes Not Reportable 02/10/19 02:40 Acanthocytes (Spur) Not Reportable 02/10/19 02:40 Rouleaux Not Reportable 02/10/19 02:40 Hemoglobin C Crystals Not Reportable 02/10/19 02:40 Schistocytes Not Reportable 02/10/19 02:40 Malaria parasites Not Reportable 02/10/19 02:40 Robb Bodies Not Reportable 02/10/19 02:40 Hem Pathologist Commnt No 02/10/19 02:40 Sodium 142 mmol/L (137-145) 02/11/19 09:26 Potassium 3.7 mmol/L (3.6-5.0) 02/11/19 09:26 Chloride 108.6 mmol/L (98-107) H 02/11/19 09:26 Carbon Dioxide 19 mmol/L (22-30) L 02/11/19 09:26 Anion Gap 18 mmol/L 02/11/19 09:26 BUN 6 mg/dL (7-17) L 02/11/19 09:26 Creatinine 1.3 mg/dL (0.7-1.2) H 02/11/19 09:26 Estimated GFR 57 ml/min 02/11/19 09:26 BUN/Creatinine Ratio 5 % 02/11/19 09:26 Glucose 113 mg/dL (65-100) H 02/11/19 09:26 POC Glucose 107 (70-105) H 02/11/19 16:19 Hemoglobin A1c 5.2 % (4-6) 02/10/19 08:15 Lactic Acid 1.80 mmol/L (0.7-2.0) 02/10/19 Unknown Calcium 8.0 mg/dL (8.4-10.2) L 02/11/19 09:26 Total Bilirubin 0.80 mg/dL (0.1-1.2) 02/10/19 02:40 Direct Bilirubin 0.3 mg/dL (0-0.2) H 02/10/19 02:40 Indirect Bilirubin 0.5 mg/dL 02/10/19 02:40 AST 20 units/L (5-40) 02/10/19 02:40 ALT 19 units/L (7-56) 02/10/19 02:40 Alkaline Phosphatase 84 units/L (35-129) 02/10/19 02:40 Total Protein 8.4 g/dL (6.3-8.2) H 02/10/19 02:40 Albumin 4.4 g/dL (3.9-5) 02/10/19 02:40 Albumin/Globulin Ratio 1.1 % 02/10/19 02:40 HCG, Qual Negative (Negative) 02/10/19 02:40 Urine Color Yellow (Yellow) 02/10/19 Unknown Urine Turbidity Cloudy (Clear) 02/10/19 Unknown Urine pH 6.0 (5.0-7.0) 02/10/19 Unknown Ur Specific [place] 1.011 (1.003-1.030) 02/10/19 Unknown Urine Protein 100 mg/dl mg/dL (Negative) 02/10/19 Unknown Urine Glucose (UA) Neg mg/dL (Negative) 02/10/19 Unknown Urine Ketones 20 mg/dL (Negative) 02/10/19 Unknown Urine Blood Lg (Negative) 02/10/19 Unknown Urine Nitrite Neg (Negative) 02/10/19 Unknown Urine Bilirubin Neg (Negative) 02/10/19 Unknown Urine Urobilinogen < 2.0 mg/dL (<2.0) 02/10/19 Unknown Ur Leukocyte Esterase Lg (Negative) 02/10/19 Unknown Urine WBC (Auto) > 182.0 /HPF (0.0-6.0) H 02/10/19 Unknown Urine RBC (Auto) 70.0 /HPF (0.0-6.0) 02/10/19 Unknown U Epithel Cells (Auto) 6.0 /HPF (0-13.0) 02/10/19 Unknown Urine Bacteria (Auto) 1+ /HPF (Negative) 02/10/19 Unknown Urine Mucus Few /HPF 02/10/19 Unknown Urine Yeast (Budding) 1+ /HPF 02/10/19 Unknown Active Medications - Current Medications Current Medications: Generic Name Dose Route Start Last Admin Trade Name Freq PRN Reason Stop Dose Admin Acetaminophen 650 mg 02/10/19 07:39 02/10/19 23:39 Tylenol PO 650 mg Q4H PRN Administration Pain MILD(1-3)/Fever >100.5/RIOS Famotidine 20 mg 02/11/19 22:00 Pepcid PO BID LETICIA Heparin Sodium (Porcine) 5,000 unit 02/10/19 10:00 02/11/19 10:24 Heparin SUB-Q 5,000 unit Q12HR LETICIA Administration Hydromorphone HCl 1 mg 02/10/19 07:39 02/10/19 23:39 Dilaudid IV 1 mg Q3H PRN Administration Pain , Severe (7-10) Sodium Chloride 1,000 mls @ 150 mls/hr 02/10/19 12:00 02/11/19 16:11 Nacl 0.9% 1000 Ml IV 150 mls/hr DIRECT LETICIA Administration Cefepime HCl 1 gm in 100 mls @ 200 mls/hr 02/11/19 13:00 02/11/19 12:04 Cefepime/Ns 1 Gm/100 Ml IV 200 mls/hr Q8HR LETICIA Administration Protocol Metformin HCl 500 mg 02/10/19 08:00 02/11/19 08:00 Glucophage PO 500 mg QDDIAB LETICIA Administration Metoclopramide HCl 10 mg 02/10/19 07:39 Reglan IV Q6H PRN Nausea And Vomiting Ondansetron HCl 4 mg 02/10/19 07:39 Zofran IV Q3H PRN Nausea And Vomiting Oxycodone/Acetaminophen 1 tab 02/10/19 07:39 Percocet 5/325 PO Q6H PRN Pain, Moderate (4-6) Senna 8.6 mg 02/11/19 12:00 02/11/19 11:52 Senokot PO 8.6 mg DAILY LETICIA Administration Sodium Chloride 10 ml 02/10/19 10:00 02/11/19 10:23 Sodium Chloride Flush Syringe 10 Ml IV 10 ml BID LETICIA Administration Sodium Chloride 10 ml 02/10/19 07:39 Sodium Chloride Flush Syringe 10 Ml IV PRN PRN LINE FLUSH
[2019-02-11] MEDS: ACETAMINOPHEN 325 MG TAB PO PRN (18:00)
[2019-02-11] MEDS: FAMOTIDINE 20 MG TAB PO SCH (22:04)
[2019-02-12] MEDS ORDERED: LIP THERAPY VASELINE TP PRN (00:38)
[2019-02-12] MEDS: SODIUM CHLORIDE 0.9% 1000 ML 1,000 ML IV SCH ×2 (02:07→20:56)
[2019-02-12 05:18] LABS: Hematocrit 36.7 % (30.3-42.9); Hemoglobin 11.9 gm/dl (10.1-14.3); Mean Corpuscular HGB Conc 33 % (30-34); Mean Corpuscular Volume 83 fl (79-97); Platelet Count 213 K/mm3 (140-440); Red Blood Count 4.44 M/mm3 (3.65-5.03); Red Cell Distribution Width 13.5 % (13.2-15.2)
[2019-02-12 05:35] LABS: BUN/Creatinine Ratio 4; Blood Urea Nitrogen 5 mg/dL (7-17); Hemolysis Index 4
[2019-02-12] MEDS: CEFEPIME/NS 1 GM/100 ML 1 GM/100 ML BAG IV SCH ×2 (05:53→14:02)
--- NOTE | 2019-02-12 09:55 | Ultrasound Report ---
ULTRASOUND RENAL INDICATION / CLINICAL INFORMATION: pyelonephritis. COMPARISON: None available. FINDINGS: RIGHT KIDNEY: Length = 12.5 cm. [normal > 9 cm] - Parenchymal Thickness = 0.4 cm. [normal > 1.5 cm] - Echogenicity: Normal. - Hydronephrosis: None. - Cyst or mass: No significant abnormality. - Stones: None seen. LEFT KIDNEY: Length = 12.2 cm. [normal > 9 cm] - Parenchymal Thickness = 0.2 cm. [normal > 1.5 cm] - Echogenicity: Normal. - Hydronephrosis: None. - Cyst or mass: No significant abnormality. - Stones: None seen. URINARY BLADDER: No significant abnormality. FREE FLUID: None. ADDITIONAL FINDINGS: None. IMPRESSION: No significant abnormality. Signer Name: David Lucas Jr, MD Signed: 02/12/2019 9:51 AM Workstation Name: [id number]
[2019-02-12] MEDS: FAMOTIDINE 20 MG TAB PO SCH ×2 (10:31→21:00)
[2019-02-12] MEDS: HEPARIN 5,000 UNIT/1 ML VIAL SUB-Q SCH ×2 (10:31→21:00)
[2019-02-12] MEDS: metFORMIN 500 MG TAB PO SCH (10:31)
[2019-02-12] MEDS: SENNOSIDES 8.6 MG TAB PO SCH (10:31)
[2019-02-12] MEDS ORDERED: VANCOMYCIN PHARMACY TO DOSE IV SCH (12:00)
--- NOTE | 2019-02-12 12:01 | Progress Note ---
Assessment and Plan Assessment and plan: Sepsis secondary Acute Pyelonephritis, POA -On IV cefepime, will add IV Vanc due to persistent fever -urine culture neg -Blood cultures neg for any growth in 48 hrs -will repeat blood cultures today GREGORIO (acute kidney injury) -Secondary to vasomotor nephropathy -improving on IVF, will monitor T2DM with hypoglycemia -BG stable -cont metformin and hypoglycemic protocol -hba1c:5.2 Metabolic acidosis -Improving, will monitor Obesity BMI of 37.1 -Lifestyle modification recommended DVT prophylaxis: Heparin Disposition: For discharge when medically stable History Interval history: She reports feeling better today. She denies abdominal pain, nausea or vomiting. However, she continues to have fever with highest recorded temperat ure of 101.4 F Hospitalist Physical - Constitutional Vitals: Temp Pulse Resp BP Pulse Ox 100.7 F H 109 H 20 119/75 91 02/12/19 04:21 02/12/19 04:21 02/12/19 04:21 02/12/19 04:21 02/12/19 04:21 General appearance: Present: no acute distress, obese - EENT Eyes: Present: PERRL, EOM intact ENT: hearing intact, clear oral mucosa - Neck Neck: Present: supple - Respiratory Respiratory effort: normal Respiratory: bilateral: CTA - Cardiovascular Rhythm: regular Heart Sounds: Present: S1 & S2 - Extremities Extremities: No edema - Abdominal General gastrointestinal: soft, non-tender, normal bowel sounds - Integumentary Integumentary: Present: clear, dry - Psychiatric Psychiatric: appropriate mood/affect - Neurologic Neurologic: CNII-XII intact Results - Labs CBC & Chem 7: 02/12/19 04:43 02/12/19 04:43 Labs: Laboratory Last Values WBC 14.5 K/mm3 (4.5-11.0) H 02/12/19 04:43 RBC 4.44 M/mm3 (3.65-5.03) 02/12/19 04:43 Hgb 11.9 gm/dl (10.1-14.3) 02/12/19 04:43 Hct 36.7 % (30.3-42.9) 02/12/19 04:43 MCV 83 fl (79-97) 02/12/19 04:43 MCH 27 pg (28-32) L 02/12/19 04:43 MCHC 33 % (30-34) 02/12/19 04:43 RDW 13.5 % (13.2-15.2) 02/12/19 04:43 Plt Count 213 K/mm3 (140-440) 02/12/19 04:43 Lymph % (Auto) 6.8 % (13.4-35.0) L 02/11/19 09:26 [place] % (Auto) 6.9 % (0.0-7.3) 02/11/19 09:26 Eos % (Auto) 0.7 % (0.0-4.3) 02/11/19 09:26 Baso % (Auto) 0.2 % (0.0-1.8) 02/11/19 09:26 Lymph # 1.3 K/mm3 (1.2-5.4) 02/11/19 09:26 [place] # 1.3 K/mm3 (0.0-0.8) H 02/11/19 09:26 Eos # 0.1 K/mm3 (0.0-0.4) 02/11/19 09:26 Baso # 0.0 K/mm3 (0.0-0.1) 02/11/19 09:26 Add Manual Diff Complete 02/10/19 02:40 Total Counted 100 02/10/19 02:40 Seg Neutrophils % 85.4 % (40.0-70.0) H 02/11/19 09:26 Seg Neuts % (Manual) 88.0 % (40.0-70.0) H 02/10/19 02:40 Band Neutrophils % 0 % 02/10/19 02:40 Lymphocytes % (Manual) 8.0 % (13.4-35.0) L 02/10/19 02:40 Reactive Lymphs % (Man) 0 % 02/10/19 02:40 Monocytes % (Manual) 4.0 % (0.0-7.3) 02/10/19 02:40 Eosinophils % (Manual) 0 % (0.0-4.3) 02/10/19 02:40 Basophils % (Manual) 0 % (0.0-1.8) 02/10/19 02:40 Metamyelocytes % 0 % 02/10/19 02:40 Myelocytes % 0 % 02/10/19 02:40 Promyelocytes % 0 % 02/10/19 02:40 Blast Cells % 0 % 02/10/19 02:40 Nucleated RBC % Not Reportable 02/10/19 02:40 Seg Neutrophils # 15.6 K/mm3 (1.8-7.7) H 02/11/19 09:26 Seg Neutrophils # Man 23.6 K/mm3 (1.8-7.7) H 02/10/19 02:40 Band Neutrophils # 0.0 K/mm3 02/10/19 02:40 Lymphocytes # (Manual) 2.1 K/mm3 (1.2-5.4) 02/10/19 02:40 Abs React Lymphs (Man) 0.0 K/mm3 02/10/19 02:40 Monocytes # (Manual) 1.1 K/mm3 (0.0-0.8) H 02/10/19 02:40 Eosinophils # (Manual) 0.0 K/mm3 (0.0-0.4) 02/10/19 02:40 Basophils # (Manual) 0.0 K/mm3 (0.0-0.1) 02/10/19 02:40 Metamyelocytes # 0.0 K/mm3 02/10/19 02:40 Myelocytes # 0.0 K/mm3 02/10/19 02:40 Promyelocytes # 0.0 K/mm3 02/10/19 02:40 Blast Cells # 0.0 K/mm3 02/10/19 02:40 WBC Morphology Not Reportable 02/10/19 02:40 Hypersegmented Neuts Not Reportable 02/10/19 02:40 Hyposegmented Neuts Not Reportable 02/10/19 02:40 Hypogranular Neuts Not Reportable 02/10/19 02:40 Smudge Cells Not Reportable 02/10/19 02:40 Toxic Granulation Not Reportable 02/10/19 02:40 Toxic Vacuolation Not Reportable 02/10/19 02:40 Dohle Bodies Not Reportable 02/10/19 02:40 Pelger-Huet Anomaly Not Reportable 02/10/19 02:40 Karan Rods Not Reportable 02/10/19 02:40 Platelet Estimate Not Reportable 02/10/19 02:40 Clumped Platelets Not Reportable 02/10/19 02:40 Plt Clumps, EDTA Not Reportable 02/10/19 02:40 Large Platelets Not Reportable 02/10/19 02:40 Giant Platelets Not Reportable 02/10/19 02:40 Platelet Satelliting Not Reportable 02/10/19 02:40 Plt Morphology Comment Not Reportable 02/10/19 02:40 RBC Morphology Normal 02/10/19 02:40 Dimorphic RBCs Not Reportable 02/10/19 02:40 Polychromasia Not Reportable 02/10/19 02:40 Hypochromasia Not Reportable 02/10/19 02:40 Poikilocytosis Not Reportable 02/10/19 02:40 Anisocytosis Not Reportable 02/10/19 02:40 Microcytosis Not Reportable 02/10/19 02:40 Macrocytosis Not Reportable 02/10/19 02:40 Spherocytes Not Reportable 02/10/19 02:40 Pappenheimer Bodies Not Reportable 02/10/19 02:40 Sickle Cells Not Reportable 02/10/19 02:40 Target Cells Not Reportable 02/10/19 02:40 Tear Drop Cells Not Reportable 02/10/19 02:40 Ovalocytes Not Reportable 02/10/19 02:40 Helmet Cells Not Reportable 02/10/19 02:40 Zamarripa-Lupton Bodies Not Reportable 02/10/19 02:40 [place] Rings Not Reportable 02/10/19 02:40 [place] Cells Not Reportable 02/10/19 02:40 Bite Cells Not Reportable 02/10/19 02:40 Crenated Cell Not Reportable 02/10/19 02:40 Elliptocytes Not Reportable 02/10/19 02:40 Acanthocytes (Spur) Not Reportable 02/10/19 02:40 Rouleaux Not Reportable 02/10/19 02:40 Hemoglobin C Crystals Not Reportable 02/10/19 02:40 Schistocytes Not Reportable 02/10/19 02:40 Malaria parasites Not Reportable 02/10/19 02:40 Robb Bodies Not Reportable 02/10/19 02:40 Hem Pathologist Commnt No 02/10/19 02:40 Sodium 143 mmol/L (137-145) 02/12/19 04:43 Potassium 3.9 mmol/L (3.6-5.0) 02/12/19 04:43 Chloride 113.1 mmol/L (98-107) H 02/12/19 04:43 Carbon Dioxide 20 mmol/L (22-30) L 02/12/19 04:43 Anion Gap 14 mmol/L 02/12/19 04:43 BUN 5 mg/dL (7-17) L 02/12/19 04:43 Creatinine 1.2 mg/dL (0.7-1.2) 02/12/19 04:43 Estimated GFR > 60 ml/min 02/12/19 04:43 BUN/Creatinine Ratio 4 % 02/12/19 04:43 Glucose 121 mg/dL (65-100) H 02/12/19 04:43 POC Glucose 110 (70-105) H 02/12/19 11:28 Hemoglobin A1c 5.2 % (4-6) 02/10/19 08:15 Lactic Acid 1.80 mmol/L (0.7-2.0) 02/10/19 Unknown Calcium 8.0 mg/dL (8.4-10.2) L 02/12/19 04:43 Total Bilirubin 0.80 mg/dL (0.1-1.2) 02/10/19 02:40 Direct Bilirubin 0.3 mg/dL (0-0.2) H 02/10/19 02:40 Indirect Bilirubin 0.5 mg/dL 02/10/19 02:40 AST 20 units/L (5-40) 02/10/19 02:40 ALT 19 units/L (7-56) 02/10/19 02:40 Alkaline Phosphatase 84 units/L (35-129) 02/10/19 02:40 Total Protein 8.4 g/dL (6.3-8.2) H 02/10/19 02:40 Albumin 4.4 g/dL (3.9-5) 02/10/19 02:40 Albumin/Globulin Ratio 1.1 % 02/10/19 02:40 HCG, Qual Negative (Negative) 02/10/19 02:40 Urine Color Yellow (Yellow) 02/10/19 Unknown Urine Turbidity Cloudy (Clear) 02/10/19 Unknown Urine pH 6.0 (5.0-7.0) 02/10/19 Unknown Ur Specific [place] 1.011 (1.003-1.030) 02/10/19 Unknown Urine Protein 100 mg/dl mg/dL (Negative) 02/10/19 Unknown Urine Glucose (UA) Neg mg/dL (Negative) 02/10/19 Unknown Urine Ketones 20 mg/dL (Negative) 02/10/19 Unknown Urine Blood Lg (Negative) 02/10/19 Unknown Urine Nitrite Neg (Negative) 02/10/19 Unknown Urine Bilirubin Neg (Negative) 02/10/19 Unknown Urine Urobilinogen < 2.0 mg/dL (<2.0) 02/10/19 Unknown Ur Leukocyte Esterase Lg (Negative) 02/10/19 Unknown Urine WBC (Auto) > 182.0 /HPF (0.0-6.0) H 02/10/19 Unknown Urine RBC (Auto) 70.0 /HPF (0.0-6.0) 02/10/19 Unknown U Epithel Cells (Auto) 6.0 /HPF (0-13.0) 02/10/19 Unknown Urine Bacteria (Auto) 1+ /HPF (Negative) 02/10/19 Unknown Urine Mucus Few /HPF 02/10/19 Unknown Urine Yeast (Budding) 1+ /HPF 02/10/19 Unknown Active Medications - Current Medications Current Medications: Generic Name Dose Route Start Last Admin Trade Name Freq PRN Reason Stop Dose Admin Acetaminophen 650 mg 02/10/19 07:39 02/11/19 18:00 Tylenol PO 650 mg Q4H PRN Administration Pain MILD(1-3)/Fever >100.5/RIOS Famotidine 20 mg 02/11/19 22:00 02/12/19 10:31 Pepcid PO 20 mg BID LETICIA Administration Heparin Sodium (Porcine) 5,000 unit 02/10/19 10:00 02/12/19 10:31 Heparin SUB-Q 5,000 unit Q12HR LETICIA Administration Hydromorphone HCl 1 mg 02/10/19 07:39 02/10/19 23:39 Dilaudid IV 1 mg Q3H PRN Administration Pain , Severe (7-10) Hydrophilic Ointment 1 applic 02/12/19 00:38 02/12/19 02:06 Vaseline Lip Therapy TP 1 applic DIRECT PRN Administration Dry Lips Sodium Chloride 1,000 mls @ 150 mls/hr 02/10/19 12:00 02/12/19 02:07 Nacl 0.9% 1000 Ml IV 150 mls/hr DIRECT LETICIA Administration Cefepime HCl 1 gm in 100 mls @ 200 mls/hr 02/11/19 13:00 02/12/19 05:53 Cefepime/Ns 1 Gm/100 Ml IV 200 mls/hr Q8HR LETICIA Administration Protocol Metformin HCl 500 mg 02/10/19 08:00 02/12/19 10:31 Glucophage PO 500 mg QDDIAB LETICIA Administration Metoclopramide HCl 10 mg 02/10/19 07:39 Reglan IV Q6H PRN Nausea And Vomiting Ondansetron HCl 4 mg 02/10/19 07:39 Zofran IV Q3H PRN Nausea And Vomiting Oxycodone/Acetaminophen 1 tab 02/10/19 07:39 Percocet 5/325 PO Q6H PRN Pain, Moderate (4-6) Senna 8.6 mg 02/11/19 12:00 02/12/19 10:31 Senokot PO 8.6 mg DAILY LETICIA Administration Sodium Chloride 10 ml 02/10/19 10:00 02/12/19 10:39 Sodium Chloride Flush Syringe 10 Ml IV 10 ml BID LETICIA Administration Sodium Chloride 10 ml 02/10/19 07:39 Sodium Chloride Flush Syringe 10 Ml IV PRN PRN LINE FLUSH
[2019-02-12] MEDS ORDERED: VANCOMYCIN 2,000 MG in SODIUM CHLORIDE 0.9% 500 ML 500 ML IV ONE (13:30)
--- NOTE | 2019-02-12 16:03 | Consultation ---
History of Present Illness - Reason for Consult Consult date: 02/12/19 Sepsis, pyelonephritis Requesting physician: ELISEO GAITAN - History of Present Illness The patient is a 33-year-old female with diabetes, previous history of urinary tract infection was admitted on 02/10/2019 with complaints of bilateral flank pain, urinary burning for 1 day prior to admission. Does have a history of similar episode about 1 year ago requiring hospitalization. She is not from [facility]. Sexually active with her boyfriend. Currently has her menstrual cycle ongoing. Feeling almost a 100% better since coming in. Empirically has been receiving IV cefepime. Today, due to persistent fever, vancomycin was added. Review of Systems: General: fever + HEENT: no new visual disturbance Respiratory: No cough, sputum, hemoptysis or shortness of breath Cardiovascular: No chest pain, syncope Gastrointestinal: No nausea, vomiting or diarrhea Genitourinary: No dysuria or hematuria at present, these have resolved Musculoskeletal: No new or worsening neck pain or back pain Neurologic: No headaches, seizures Hematologic: No easy bruising or bleeding Endocrine: No night sweats or acute weight loss Skin: negative for rash, jaundice Psychiatric: No suicidal or homicidal ideation Past History Past Medical History: No medical history, diabetes Past Surgical History: Other (laparoscopy but patient does not know what it was done for.) Social history: no significant social history, lives with family, full code Family history: hypertension Medications and Allergies Allergies Allergy/AdvReac Type Severity Reaction Status Date / Time No Known Allergies Allergy Unverified 02/10/19 02:30 Home Medications Medication Instructions Recorded Confirmed Last Taken Type metFORMIN [Glucophage] 500 mg PO QDAY 02/10/19 02/10/19 Unknown History Active Meds: Active Medications Acetaminophen (Tylenol) 650 mg PO Q4H PRN PRN Reason: Pain MILD(1-3)/Fever >100.5/RIOS Last Admin: 02/11/19 18:00 Dose: 650 mg Documented by: Famotidine (Pepcid) 20 mg PO BID [facility] Last Admin: 02/12/19 10:31 Dose: 20 mg Documented by: Heparin Sodium (Porcine) (Heparin) 5,000 unit SUB-Q Q12HR [facility] Last Admin: 02/12/19 10:31 Dose: 5,000 unit Documented by: Hydromorphone HCl (Dilaudid) 1 mg IV Q3H PRN PRN Reason: Pain , Severe (7-10) Last Admin: 02/10/19 23:39 Dose: 1 mg Documented by: Hydrophilic Ointment (Vaseline Lip Therapy) 1 applic TP DIRECT PRN PRN Reason: Dry Lips Last Admin: 02/12/19 02:06 Dose: 1 applic Documented by: Sodium Chloride (Nacl 0.9% 1000 Ml) 1,000 mls @ 150 mls/hr IV DIRECT LETICIA Last Admin: 02/12/19 02:07 Dose: 150 mls/hr Documented by: Cefepime HCl (Cefepime/Ns 1 Gm/100 Ml) 1 gm in 100 mls @ 200 mls/hr IV Q8HR [facility]; Protocol Last Admin: 02/12/19 14:02 Dose: 200 mls/hr Documented by: Vancomycin HCl 1,500 mg/ (Sodium Chloride) 530 mls @ 333.333 mls/hr IV Q18H [facility] Metformin HCl (Glucophage) 500 mg PO QDDIAB [facility] Last Admin: 02/12/19 10:31 Dose: 500 mg Documented by: Metoclopramide HCl (Reglan) 10 mg IV Q6H PRN PRN Reason: Nausea And Vomiting Ondansetron HCl (Zofran) 4 mg IV Q3H PRN PRN Reason: Nausea And Vomiting Oxycodone/Acetaminophen (Percocet 5/325) 1 tab PO Q6H PRN PRN Reason: Pain, Moderate (4-6) Senna (Senokot) 8.6 mg PO DAILY [facility] Last Admin: 02/12/19 10:31 Dose: 8.6 mg Documented by: Sodium Chloride (Sodium Chloride Flush Syringe 10 Ml) 10 ml IV BID [facility] Last Admin: 02/12/19 10:39 Dose: 10 ml Documented by: Sodium Chloride (Sodium Chloride Flush Syringe 10 Ml) 10 ml IV PRN PRN PRN Reason: LINE FLUSH Physical Examination - Physical Exam Narrative exam: Physical Exam: Constitutional: Alert, cooperative. No acute distress Head, Ears, Nose: Normocephalic, atraumatic. External ears, nose normal Eyes: Conjunctivae/corneas clear. No icterus. No ptosis. Neck: Supple, no meningeal signs Oral: no thrush Cardiovascular: S1, S2 normal. Respiratory: Good air entry, clear to auscultation bilaterally GI: Soft, non-tender; bowel sounds normal. No peritoneal signs Musculoskeletal: No pedal edema, no cyanosis. Skin: No rash or abscess Hem/Lymphatic: No palpable cervical or supraclavicular nodes. No lymphangitis Psych: Mood ok. Affect normal Neurological: Awake, alert, oriented. No gross abnormality - Constitutional Vitals: Vital Signs Temp Pulse Resp BP Pulse Ox 98.5 F 102 H 20 133/88 96 02/12/19 11:52 02/12/19 11:52 02/12/19 11:52 02/12/19 11:52 02/12/19 11:52 Temperature -Last 24 Hours Temperature 98.5 F Temperature 100.7 F Temperature 98.8 F Temperature 101.4 F Results - Labs CBC & Chem 7: 02/12/19 04:43 02/12/19 04:43 Labs: Abnormal lab results 02/11/19 02/11/19 02/12/19 Range/Units 16:19 21:12 04:43 WBC 14.5 H (4.5-11.0) K/mm3 MCH 27 L (28-32) pg Chloride (98-107) mmol/L Carbon Dioxide (22-30) mmol/L BUN (7-17) mg/dL Glucose (65-100) mg/dL POC Glucose 107 H 146 H (70-105) Calcium (8.4-10.2) mg/dL 02/12/19 02/12/19 Range/Units 04:43 11:28 WBC (4.5-11.0) K/mm3 MCH (28-32) pg Chloride 113.1 H (98-107) mmol/L Carbon Dioxide 20 L (22-30) mmol/L BUN 5 L (7-17) mg/dL Glucose 121 H (65-100) mg/dL POC Glucose 110 H (70-105) Calcium 8.0 L (8.4-10.2) mg/dL - Imaging and Cardiology CT scan - abdomen: report reviewed, image reviewed (no acute abnormality noted) Assessment and Plan Cultures: Urine culture: mixed growth Blood culture: no growth 1) Sepsis, secondary to pyelonephritis and UTI: improving. UA showed significant pyuria, clinical picture also consistent. Culture is growing mixed sonia. Slow response likely due to severe infection. Vancomycin is not need for pyelonephritis treatment. 2) GREGORIO: improving. Recs: - continue Cefepime while inpatient, dose adjusted given her obesity and improving renal function - vancomycin not needed, order discontinued - OK for discharge tomorrow on PO Levofloxacin 500 mg daily x 3 more days Anupam Joiner MD, FACP [facility] C: [phone] O: [phone] F: [phone]
[2019-02-12] MEDS: CEFEPIME/NS 2 GM/100 ML 2 GM/100 ML BAG IV SCH (20:51)
[2019-02-13] MEDS: SODIUM CHLORIDE 0.9% 1000 ML 1,000 ML IV SCH (04:22)
[2019-02-13] MEDS: CEFEPIME/NS 2 GM/100 ML 2 GM/100 ML BAG IV SCH (04:22)
[2019-02-13 05:15] VITALS: BP 128/79
[2019-02-13] MEDS ORDERED: VANCOMYCIN 1,500 MG in SODIUM CHLORIDE 0.9% 500 ML 500 ML IV SCH (10:00)
--- NOTE | 2019-02-13 11:04 | Discharge Summary ---
Providers - Providers Date of Admission: 02/10/19 06:47 Date of discharge: 02/13/19 Attending physician: YADIRA WILKINSON 02/11/19 17:51 Consult to Physician [CONS] Routine Comment: Consulting Provider: KARELY RENEE Physician Instructions: Reason For Exam: SEPSIS Primary care physician: DATA CONTROL CLERK SUPERVISOR Hospitalization Reason for admission: Sepsis secondary to Acute Pyelonephritis Condition: Stable Procedures: None Hospital course: Final discharge diagnosis: Sepsis secondary to acute Pyelonephritis GREGORIO, probably vasomotor nephropathy T2DM with hypoglycemia Metabolic acidosis Obesity with BMI of 37.1 Hospital course: Patient was admitted and placed on IV antibiotic after blood and urine cultures were obtained. She also received IV fluid for the GREGORIO with resolution. Subsequently, she had recurrent fever which necessitated repeating the blood culture. Thereafter, she improved clinically and was then deemed stable for discharge on oral antibiotic. The blood and urine cultures all back negative for any growth. Disposition: DC- TO HOME OR SELFCARE Time spent for discharge: 35 minutes Core Measure Documentation - Palliative Care Palliative Care/ Comfort Measures: Not Applicable - Core Measures Any of the following diagnoses?: none Exam - Constitutional Vitals: Temp Pulse Resp BP Pulse Ox 98.7 F 105 H 18 128/79 90 02/13/19 04:44 02/13/19 04:44 02/13/19 04:44 02/13/19 04:39 02/13/19 04:44 General appearance: Present: no acute distress, obese - EENT Eyes: Present: PERRL, EOM intact ENT: hearing intact, clear oral mucosa - Neck Neck: Present: supple, normal ROM - Respiratory Respiratory effort: normal Respiratory: bilateral: CTA - Cardiovascular Rhythm: regular Heart Sounds: Present: S1 & S2. Absent: rub, click - Extremities Extremities: No edema - Abdominal General gastrointestinal: Present: soft, non-tender, non-distended, normal bowel sounds - Integumentary Integumentary: Present: clear, warm, dry - Musculoskeletal Musculoskeletal: gait normal, strength equal bilaterally - Psychiatric Psychiatric: appropriate mood/affect, intact judgment & insight - Neurologic Neurologic: CNII-XII intact, moves all extremities Plan Follow up with: PRIMARY CARE, [Primary Care Provider] - 7 Days Prescriptions: levoFLOXacin [Levofloxacin] 500 mg PO DAILY #5 tablet
[2019-02-13] MEDS: metFORMIN 500 MG TAB PO SCH (11:08)
[2019-02-13] MEDS: FAMOTIDINE 20 MG TAB PO SCH (11:09)
== END 2019-02-13 11:25 | disposition home or self-care (01) | DRG 871 ==
LOC: ED 23:28 → 3A 02-10 06:47
PROVIDERS: ADMIT Internal Medicine; ATTEND Internal Medicine
DX: A41.9 Sepsis, unspecified organism (principal); N17.0 Acute kidney failure with tubular necrosis; E11.9 Type 2 diabetes mellitus without complications; E11.649 Type 2 diabetes mellitus with hypoglycemia without coma; N10 Acute pyelonephritis; M54.5 Low back pain; E66.9 Obesity, unspecified; Z87.440 Personal history of urinary (tract) infections; Z82.49 Family history of ischemic heart disease and other diseases of the circulatory system; Z79.899 Other long term (current) drug therapy; Z68.37 Body mass index [BMI] 37.0-37.9, adult; Z83.3 Family history of diabetes mellitus
CPT/HCPCS: 36415; 74176; 76770; 80048; 80076; 81001; 82140; 82962; 83036; 84703; 85007; 85025; 85027; 87040; 87086; 99406; G0378; J0692; J0696; J1170; J1644; J2405; J3370; J7030; J7040; J7042